=== PATIENT | male | born 1950 | race Caucasian/White ===

== ENCOUNTER 2017-11-29 07:24 | Day surgery (SDC) | payer MEDICARE, OTHER ==
[~2017-11-29] VITALS: Ht 182.9 cm; Wt 83.6 kg
[2017-11-29] MEDS ORDERED: VITA10002 PO (07:45)
[2017-11-29] MEDS ORDERED: ASPI81CH6 CHEW (07:45)
[2017-11-29] MEDS ORDERED: SODIUM CHLOR 0.9% 1000 ML INJ 1,000 ML IV SCH (08:15)
--- NOTE | 2017-11-29 10:11 | RADRPT ---
EXAM DATE/TIME: 11/29/2017 09:17 [place] COMPARISON: No previous studies available for comparison. INDICATIONS : Patient with history of head pains and dizziness in need of lumbar puncture. MEDICAL HISTORY : Cervical spine injury, B12 deficiency, Sarcoidosis SURGICAL HISTORY : Left hip replacement, C4 and C6 surgery, Cholecystectomy ENCOUNTER: Initial ACUITY: > 1 year PAIN SCORE: 5/10 LOCATION: Low back LUMBAR PUNCTURE TIME: 0919 hours FLUORO TIME: 0.3 minutes IMAGE SERIES: 1 ACCESS LEVEL: L2-3 FLUID: 12.5 cc of clear CSF was collected and sent to the laboratory for analysis. PROCEDURE : 1. Fluoroscopic guided lumbar puncture. The risks, benefits and alternatives to the procedure were explained and verbal and written consent w as obtained. The site was prepped in sterile fashion. Full sterile technique was used, including ca p, mask, sterile gloves and gown and a large sterile sheet. Hand hygiene and 2% chlorhexidine and/or betadine/alcohol prep was utilized per protocol for cutaneous antisepsis. The skin and subcutaneous tissues were infiltrated with local anesthetic solution. With fluoroscopic guidance the lumbar thecal sac was punctured at the level above. The fluid describ ed above was removed without difficulty. The patient tolerated the procedure well and there were no complications. CONCLUSION: Uncomplicated fluoroscopically guided lumbar puncture. Fam Purcell MD on November 29, 2017 at 10:09 Board Certified Radiologist. This report was verified electronically.
[2017-11-29 10:20] LABS: TOTAL PROTEIN,CSF 63.1 MG/DL (15.0-45.0)
[2017-11-29 11:58] LABS: SUPERNATE COLOR TUBE #1 CLEAR (CLEAR); VOLUME TUBE # 1 2.3 ML
[2017-11-29 11:59] LABS: CSF LYMPHOCYTES 33 %; CSF MONOCYTES 67 %; CSF NEUTROPHILS 0 %; RBC TUBE #4 15 /MM3; WBC TUBE #4 3 /MM3 (0-10)
[2017-11-29 12:00] VITALS: BP 170/114; PULSE 79; RESP 16; O2SAT 96
[2017-11-30 16:21] LABS: ALBUMIN SERUM 4150 mg/dL (3200 - 4800); IGG CSF 3.9 mg/dL (<=8.1); IGG INDEX CSF 0.55 (<=0.85); IGG SERUM 826 mg/dL (767 - 1590); IGG/ALBUMIN CSF 0.11 (<=0.21); OLIGOCLONAL BANDING CSF 6 bands; OLIGOCLONAL BANDING INTERPRET 0 bands (<4); OLIGOCLONAL BANDING SERUM 6 bands; SYNTHESIS RATE CSF 2.92 mg/24 h (<=12)
[2017-12-01 23:52] LABS: HOMOCYSTEINE 20.5 umol/L (<11.4)
[2017-12-02 09:40] LABS: CSF CRYPTOCOCCUS AG CONF ND (NOT DETECTD)
[2017-12-02 15:40] LABS: CARDIOLIPIN IGG AB <9.4 GPL; CARDIOLIPIN IGM AB <9.4 MPL
[2017-12-03 13:53] LABS: DRVVT 1:1 MIX ND (CORRECTED); DRVVT CONFIRM ND (NEGATIVE); HEXAGONAL PHASE CONFIRM ND (NEGATIVE)
[2017-12-03 19:53] LABS: CSF CRYPTOCOCCUS ANTIGEN NOT DETECTED (()); VDRL CSF NON-REACTIVE (())
[2017-12-04 18:00] LABS: PROTEIN C AG 106 % (70-150)
== END 2017-11-29 12:20 | disposition home or self-care (01) ==
LOC: HROP 07:24 → HRIP 07:40 → HROP 12:20
PROVIDERS: ATTEND Psychiatry & Neurology Neurology
DX: G45.0 Vertebro-basilar artery syndrome (principal); R42 Dizziness and giddiness; D86.9 Sarcoidosis, unspecified; E53.8 Deficiency of other specified B group vitamins; Z96.642 Presence of left artificial hip joint
CPT/HCPCS: 62270; 77003; 81241; 82040; 82042; 82164; 82784; 82945; 83090; 83873; 83916; 84157; 85302; 85305; 85306; 85613; 85730; 86147; 86403; 86592; 86618; 87015; 87070; 87102; 87116; 87205; 87206; 89051